=== PATIENT | female | born 1965 | race Caucasian/White ===

== ENCOUNTER 2017-07-07 11:38 | Emergency (ER) | payer OTHER ==
[~2017-07-07] VITALS: Ht 162.6 cm; Wt 70.9 kg
[2017-07-07 11:39] VITALS: TEMP 36.6; Ht 162.6 cm; Wt 70.9 kg
[2017-07-07] MEDS ORDERED: SODIUM CHLORIDE 0.9% 1000ML 1,000 ML IV STA (12:46)
[2017-07-07] MEDS ORDERED: KETOROLAC TROMETHAMINE 30 MG/ML VIAL IV STA (12:46)
[2017-07-07] MEDS ORDERED: ONDANSETRON INJ 2 MG/ML 2 ML VIAL IV STA (12:46)
[2017-07-07] MEDS ORDERED: AMPICILLIN/SULBACTAM SOD INJ 3,000 MG in SODIUM CHLORIDE 0.9% 100ML 100 ML IV STA (12:46)
[2017-07-07] MEDS ORDERED: MoRPHine SULFATE 4 MG/ML 1 ML CARP\\VIAL IV STA (12:46)
[2017-07-07 13:26] LABS: BASO % 0.8 %; BASO ABS # 0.06 K/uL (0-0.2); COMPLETE YES; EOS % 0.7 %; HEMATOCRIT 39.8 % (37-47); LYMPH % 21.4 %; LYMPH ABS # 1.53 K/uL (1.2-3.4); MEAN CELL VOLUME 86.5 fL (80-100); MEAN CORPUSCULAR HEMOGLOBIN 29.8 pg (25-34); MEAN CORPUSCULAR HGB CONC 34.4 g/dl (32-36); MEAN PLATELET VOLUME 9.9 fL (7.4-10.4); MONO % 13.2 %; NEUT % 63.9 %; PLATELET COUNT 249 K/uL (130-400); WHITE BLOOD COUNT 7.14 K/uL (4.8-10.8)
[2017-07-07 13:36] LABS: BUN/CREATININE RATIO 11.7 (10-20); CALCIUM 9.7 mg/dl (8.5-10.1); CREATININE 0.94 mg/dl (0.60-1.20); POTASSIUM 3.7 mmol/L (3.5-5.1)
[2017-07-07 13:39] LABS: ALB/GLOB RATIO 0.7 (0.9-2)
[2017-07-07 13:40] LABS: PARTIAL THROMBOPLASTIN RATIO 1.1; PROTHROMBIN TIME (PATIENT) 10.4 SECONDS (9.0-12.0)
[2017-07-07 13:53] LABS: MANUAL MICROSCOPIC REQUIRED? NO; REVIEW REQ? YES; URINE APPEARANCE CLEAR (CLEAR); URINE BILIRUBIN NEG (NEG); URINE COLOR YELLOW; URINE EPITHELIAL CELL AUTO >30 /lpf (0-5); URINE NITRITE NEG (NEG); URINE SPECIFIC GRAVITY 1.016 (1.000-1.030); UROBILINOGEN NEG (NEG); ZZUR CULT IF INDIC CLEAN CATCH NO
[2017-07-07 14:04] LABS: URINE PATH CASTS 1-5 WBC CASTS /lpf (0)
[2017-07-07 14:46] LABS: INFLUENZA A PCR Neg for Influ A (NEG); INFLUENZA B PCR Neg for Influ B (NEG)
[2017-07-07] MEDS ORDERED: AMOX875T PO (14:53)
[2017-07-07] MEDS ORDERED: ONDA4TAB10 SL (14:53)
[2017-07-07] MEDS ORDERED: OXYC1TAB3 PO (14:53)
--- NOTE | 2017-07-07 14:56 | EMERGENCY ROOM VISIT NOTE ---
History First contact with patient: 12:24 Chief Complaint: ILLNESS Stated Complaint: SORE THROAT, BODY ACHES, FEVER/CHILLS History of Present Illness Patient is an otherwise healthy 51-year-old white female who presents the emergency department accompanied by her for evaluation of a sore throat 5-6 days, with associated fever, chills, body and muscle aches. She states that her symptoms started last Friday with a mild sore throat. About 2 days later, she developed subjective fever, chills, body and muscle aches. She was using ibuprofen which was helping slightly with her sore throat and achiness. Last July 04, she was seen at a [facility] facility in the [place] where she had a negative strep and a negative mono. She was given a prescription for prednisone, but only took one dose of it because it was interfering with her sleep. She has subsequently developed painful, swollen glands in her neck. She has tried increasing her fluids, but she feels dehydrated. She is slightly nauseous, anorexic and had dry heaves today. She denies any sinus or nasal congestion. No postnasal drip or cough. She reports that her 1-year-old granddaughter, who she was caring for recently was diagnosed with HSV 1 after developing swelling of her gums and apparent oral ulcerations. The granddaughter was prescribed acyclovir, but ultimately after discussion with the document reviewer, they did not take the medication and elected to treat her conservatively. Granddaughter is improving. Patient does note that her daughter and another granddaughter also developed a bad sore throat, and both tested negative for strep. The patient herself denies any skin rashes or lesions, other than the white exudate on her tonsils, she does not have any oral rashes or lesions. Review of Systems Review of systems as per HPI. All other systems reviewed were negative. 10 systems reviewed. Past Medical/Surgical History Medical Problems: (1) No Known Active Medical Problems Surgical Problems: (1) History of hysterectomy Electronic medical records are reviewed and summarized as above/below. See Problem List. Social History Smoking Status: Never Smoker Alcohol Use: none Housing Status: lives with family Occupation Status: employed Current/Historical Medications Scheduled Amoxicillin & Pot Clavulanate (Augmentin 875-125 mg), 1 TAB PO BID Scheduled PRN Ondasetron Odt (Zofran Odt), 4 MG SL Q6H PRN for Nausea or Vomiting Oxycodone Ir (Roxicodone Ir), 1-2 TAB PO Q4H PRN for Severe Pain Physical Exam Vital Signs Date Time Temp Pulse Resp B/P (MAP) Pulse Ox O2 Delivery O2 Flow Rate FiO2 07/07/17 15:21 93 16 105/73 98 Room Air 07/07/17 13:05 80 19 123/82 97 07/07/17 11:39 36.6 119 18 146/97 98 Room Air Physical Exam MENTAL STATUS: Patient is an ill, although nontoxic appearing 51-year-old white female who is awake and alert and in no acute distress. HEAD: Atraumatic, without temporal or scalp tenderness. EYES: PERRL, EOMI, no discharge or injection. EARS: Tympanic membranes intact, not inflamed, have normal contour. External canals clear. NOSE: Nares patent, turbinates moist without rhinorrhea. MOUTH: Mucous membranes moist, no lesions, tongue and gums appear normal. THROAT: Tonsils are uniformly enlarged, erythematous and: with white exudate noted bilaterally. No trismus. No uvular deviation. No fullness of the soft palate. Airway is patent. NECK: No bruits auscultated. Supple, bilateral cervical chain lymphadenopathy noted. No nuchal rigidity. HEART: Regular rate and rhythm without murmurs, ectopy, gallops, or rubs. LUNGS: Clear to auscultation and breath sounds equal, no wheezes, rales, or rhonchi. ABDOMEN: Sounds are present. Abdomen is soft, nondistended, mildly tender to palpation in the epigastric region. There is no pain in the left upper quadrant. No guarding or rebound. SKIN: Normal. NEUROLOGICAL: Sensory and motor functions grossly intact. Normal gait. Medical Decision & Procedures Laboratory Results 07/07/17 12:10 Red Blood Count 4.60, Mean Corpuscular Volume 86.5, Mean Corpuscular Hemoglobin 29.8, Mean Corpuscular Hemoglobin Concent 34.4, Mean Platelet Volume 9.9, Neutrophils (%) (Auto) 63.9, Lymphocytes (%) (Auto) 21.4, Monocytes (%) (Auto) 13.2, Eosinophils (%) (Auto) 0.7, Basophils (%) (Auto) 0.8, Neutrophils # (Auto ) 4.56, Lymphocytes # (Auto) 1.53, Monocytes # (Auto) 0.94, Eosinophils # (Auto ) 0.05, Basophils # (Auto) 0.06 07/07/17 12:10 Test 07/07/17 11:57 07/07/17 12:10 07/07/17 13:10 Influenza Type A (RT-PCR) Neg for Influ A (NEG) Influenza Type A Antigen Neg for Influ A (NEG) Influenza Type B Antigen Neg for Influ B (NEG) Influenza Type B (RT-PCR) Neg for Influ B (NEG) White Blood Count 7.14 K/uL (4.8-10.8) Red Blood Count 4.60 M/uL (4.2-5.4) Hemoglobin 13.7 g/dL (12.0-16.0) Hematocrit 39.8 % (37-47) Mean Corpuscular Volume 86.5 fL (80-100) Mean Corpuscular Hemoglobin 29.8 pg (25-34) Mean Corpuscular Hemoglobin Concent 34.4 g/dl (32-36) Platelet Count 249 K/uL (130-400) Mean Platelet Volume 9.9 fL (7.4-10.4) Neutrophils (%) (Auto) 63.9 % Lymphocytes (%) (Auto) 21.4 % Monocytes (%) (Auto) 13.2 % Eosinophils (%) (Auto) 0.7 % Basophils (%) (Auto) 0.8 % Neutrophils # (Auto) 4.56 K/uL (1.4-6.5) Lymphocytes # (Auto) 1.53 K/uL (1.2-3.4) Monocytes # (Auto) 0.94 K/uL (0.11-0.59) Eosinophils # (Auto) 0.05 K/uL (0-0.5) Basophils # (Auto) 0.06 K/uL (0-0.2) RDW Standard Deviation 42.7 fL (36.4-46.3) RDW Coefficient of Variation 13.5 % (11.5-14.5) Immature Granulocyte % (Auto) 0.0 % Immature Granulocyte # (Auto) 0.00 K/uL (0.00-0.02) Prothrombin Time 10.4 SECONDS (9.0-12.0) Prothromb Time International Ratio 1.0 (0.9-1.1) Activated Partial Thromboplast Time 28.9 SECONDS (21.0-31.0) Partial Thromboplastin Ratio 1.1 Anion Gap 10.0 mmol/L (3-11) Est Creatinine Clear Calc Drug Dose 68.4 ml/min Estimated GFR () 81.4 Estimated GFR (Non- 70.2 BUN/Creatinine Ratio 11.7 (10-20) Calcium Level 9.7 mg/dl (8.5-10.1) Total Bilirubin 0.3 mg/dl (0.2-1) Aspartate Amino Transf (AST/SGOT) 20 U/L (15-37) Alanine Aminotransferase (ALT/SGPT) 21 U/L (12-78) Alkaline Phosphatase 89 U/L (45-117) Total Protein 8.5 gm/dl (6.4-8.2) Albumin 3.5 gm/dl (3.4-5.0) Globulin 5.0 gm/dl (2.5-4.0) Albumin/Globulin Ratio 0.7 (0.9-2) Urine Color YELLOW Urine Appearance CLEAR (CLEAR) Urine pH 5.0 (4.5-7.5) Urine Specific Matthews 1.016 (1.000-1.030) Urine Protein NEG (NEG) Urine Glucose (UA) NEG (NEG) Urine Ketones 2+ (NEG) Urine Occult Blood 1+ (NEG) Urine Nitrite NEG (NEG) Urine Bilirubin NEG (NEG) Urine Urobilinogen NEG (NEG) Urine Leukocyte Esterase TRACE (NEG) Urine WBC (Auto) 5-10 /hpf (0-5) Urine RBC (Auto) 0-4 /hpf (0-4) Urine Hyaline Casts (Auto) 5-10 /lpf (0-5) Urine Epithelial Cells (Auto) >30 /lpf (0-5) Urine Bacteria (Auto) NEG (NEG) Urine Renal Epithelial Cells /lpf (0-5) Urine Pathogenic Casts 1-5 WBC CASTS /lpf (0) Medications Administered Medications (Trade) Dose Ordered Sig/Marycruz Route Start Time Stop Time Status Last Admin Dose Admin Sodium Chloride 1,000 ml @ 999 mls/hr Q1H1M STAT IV 07/07/17 12:46 07/07/17 13:46 DC 07/07/17 13:08 999 MLS/HR Ketorolac Tromethamine (Toradol Inj) 30 mg NOW STAT IV 07/07/17 12:46 07/07/17 12:48 DC 07/07/17 13:07 30 MG Ondansetron HCl (Zofran Inj) 4 mg NOW STAT IV 07/07/17 12:46 07/07/17 12:48 DC 07/07/17 13:06 4 MG Morphine Sulfate (MoRPHine SULFATE INJ) 4 mg NOW STAT IV 07/07/17 12:46 07/07/17 12:48 DC 07/07/17 13:56 4 MG Ampicillin Sodium/ Sulbactam Sodium 3000 mg/Sodium Chloride 108 ml @ 200 mls/hr NOW STAT IV 07/07/17 12:46 07/07/17 13:18 DC 07/07/17 13:06 200 MLS/HR ED Course The patient was seen and evaluated as above. Nursing staff had initiated critical pathways prior to my evaluation of the patient. IV had been initiated. Rapid strep had been performed and was negative. CBC with differential, CMP, coags and urinalysis were obtained. A rapid influenza and a PCR influenza were both performed. After my evaluation of the patient, she was medicated with a liter bolus of normal saline solution, Toradol 30 mg, Zofran 4 mg, morphine 4 g and Unasyn 3 g IV. She was given ice chips. Laboratory studies noted a normal white count at 7400, no left shift or bandemia. Coags are unremarkable. Electrolytes and renal functions are without significant abnormality. Liver functions are not elevated. Rapid strep was negative, backup culture is pending. Rapid and PCR influenza are both negative. Urinalysis is most indicative of a contamination, and patient has no UTI-like symptoms. The patient was reassessed after the IV medications, she reported improvement of her throat pain, rating her discomfort a 2/10 at discharge. She was given chilled applesauce, which she tolerated. Given her exudate of tonsillitis, fever and cervical chain lymphadenopathy, she will be treated with antibiotics. She was given Unasyn here and will be discharged to home on Augmentin. She was given a small prescription for Zofran and oxycodone to use for pain. She had already been prescribed prednisone and was encouraged to resume the oral prednisone tomorrow. By exam today she does not have any evidence for retropharyngeal or peritonsillar abscess. Differential diagnoses also entertained included tonsillitis, strep pharyngitis, mononucleosis, among others. She was encouraged to return to the emergency department for worsening symptoms and follow-up with her PCP later this week for recheck. Medical Decision See Emergency Department course. Medication Reconcilliation Current Medication List: was personally reviewed by me Blood Pressure Screening Patient's blood pressure: Elevated blood pressure Blood pressure disposition: Elevated BP felt to be situational Impression Primary Impression: Exudative tonsillitis Departure Information Prescriptions Ondasetron Odt (ZOFRAN ODT) 4 Mg Tab 4 MG SL Q6H Y for Nausea or Vomiting, #20 TAB Prov: Gina Sandra PA 07/07/17 Oxycodone Ir (Roxicodone Ir) 5 Mg Tab 1-2 TAB PO Q4H Y for Severe Pain, #20 TAB For Initial Treatment Prov: Gina Sandra PA 07/07/17 Amoxicillin & Pot Clavulanate (Augmentin 875-125 mg) 1 Tab Tab 1 TAB PO BID, #20 TAB Prov: Gina Sandra PA 07/07/17 Referrals No Doctor, Assigned (PCP) Patient Instructions [facility] Additional Instructions DO NOT drive, drink alcohol, operate machinery, or perform dangerous activities today. You were given medications in the ER that can affect your ability to safely function or operate a vehicle. Oxycodone (OxyIR) 5mg: Take 1-2 pills every four hours for breakthrough pain. Avoid alcohol, operating machinery or dangerous equipment, working on ladders or roofs, DRIVING, or situations where being under the influence may be dangerous. It is recommended to use an [id number] stool softener such as Colace, 100mg twice daily while taking this medication to avoid constipation. Zofran(odansetron) tablets 4mg: Take one and allow it to dissolve in your mouth every four to six hours as needed for nausea or vomiting. Resume prednisone tomorrow morning as previously prescribed by [facility]. Amoxicillin Clavulanate (Augmentin) 875mg: Take one pill twice daily for 10 days for your throat infection. All antibiotics can cause diarrhea. If this occurs and you feel worse or it does not resolve in 1-2 days follow up with your doctor or return to the Emergency Department as this could be signs of serious underlying problems. Any medication can cause an allergic reaction, stop the pills immediately and return to the ER for rash, hives, breathing difficulties, or swelling. Ibuprofen(Motrin, Advil) may be used for fever or pain. Use 600mg every six hours as needed. Take with food. Avoid using more than 2400mg in a 24 hour period. Do not use 2400mg per day for more than three consecutive days without physician direction. Prolonged inappropriate use can lead to stomach upset or ulcers. This is available over the counter and typically comes in 200mg tablets. Read all the package inserts or medication information paperwork provided. If you have any questions or concerns call your primary provider, pharmacist or the ER for assistance. Soft/liquid diet. Rest and drink plenty of fluids. Continue current medications. Return to the ER for severe pain, persistent fevers, worsening throat pain, inability to swallow, vomiting, difficulty breathing or any worsening of your condition. Follow up with your primary physician within 2-3 days for a recheck of the current condition.
[2017-07-07 15:21] VITALS: BP 105/73; PULSE 93; O2SAT 98
== END 2017-07-07 15:38 | disposition home or self-care (01) ==
LOC: C.EDB 11:39
DX: J03.90 Acute tonsillitis, unspecified (principal); R50.9 Fever, unspecified